=== PATIENT | female | born 1995 | race American Indian/Alaskan Native ===

== ENCOUNTER 2019-02-26 10:18 | Emergency (ER) | payer SELFPAY ==
[2019-02-26 10:27] VITALS: BP 99/61
--- NOTE | 2019-02-26 10:58 | Emergency Department Report ---
ED Syncope HPI - General Chief Complaint: Fall Stated Complaint: SYNCOPE Time Seen by Provider: 02/26/19 10:51 Source: patient Exam Limitations: no limitations - History of Present Illness Initial Comments: Sparkle is a very pleasant 24-year-old female with history of hypertension who presents after a syncopal episode at work. 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 She feels as if fainting occurs when she doesn't eat. She had previous fainting episode before. She has been taking atenolol for one year for the past year. She currently does not have a primary care physician. She has been prescribed this medication at the [facility]. She is in a program for marijuana use. She denies any chest pain. She denies shortness of breath. She denies palpitations. She denies leg pain. She denies travel. She does not use oral contraceptives. She is in her normal state of health currently. Timing/Prior Episodes: single episode today, remote history Precipitating Factors: Positive: none Context: standing Loss of Consciousness: brief (seconds) Current Symptoms: back to normal - Related Data Allergies/Adverse Reactions: Allergies No Known Allergies Allergy (Unverified 02/26/19 10:19) ED Review of Systems ROS: Stated complaint: SYNCOPE Other details as noted in HPI Comment: All other systems reviewed and negative Constitutional: denies: fever, malaise Respiratory: denies: cough, shortness of breath Cardiovascular: syncope. denies: chest pain, palpitations Gastrointestinal: denies: abdominal pain, nausea, vomiting ED Past Medical Hx - Past Medical History Previous Medical History?: Yes Hx Hypertension: Yes - Surgical History Past Surgical History?: No - Social History Smoking Status: Never Smoker Substance Use Type: None ED Physical Exam - General Limitations: No Limitations General appearance: alert, in no apparent distress - Head Head exam: Present: atraumatic, normocephalic - Eye Eye exam: Present: normal appearance. Absent: scleral icterus, conjunctival injection - ENT ENT exam: Present: mucous membranes moist - Neck Neck exam: Present: normal inspection, full ROM - Respiratory Respiratory exam: Present: normal lung sounds bilaterally. Absent: respiratory distress, wheezes, rales, rhonchi - Cardiovascular Cardiovascular Exam: Present: regular rate, normal rhythm, normal heart sounds. Absent: systolic murmur, diastolic murmur, rubs, gallop - GI/Abdominal GI/Abdominal exam: Present: soft, normal bowel sounds. Absent: distended, tenderness, guarding, rebound - Extremities Exam Extremities exam: Present: normal inspection - Neurological Exam Neurological exam: Present: alert, oriented X3 - Psychiatric Psychiatric exam: Present: normal affect, normal mood - Skin Skin exam: Present: warm, dry, intact, normal color. Absent: rash ED Course Vital Signs 02/26/19 10:24 Temperature 97.6 F Pulse Rate 97 H Respiratory 16 Rate Blood Pressure 99/61 [Left] O2 Sat by Pulse 96 Oximetry ED Medical Decision Making - Medical Decision Making Sparkle is a healthy 24-year-old female with history of hypertension on atenolol presents with syncopal episode. I suspect vasovagal syncope versus iatrogenic syncope to hypotension with atenolol use. Blood pressure is 99/61 at this time. She is currently symptom-free. I have asked Sparlke to stop taking atenolol until she is evaluated by an [facility] medical clinic physician. I provided her several referrals for primary care. She does not require any further intervention or evaluation. I do not suspect pulmonary embolism. She has perc negative for PE. I do not suspect arrhythmia or hemorrhage. Critical care attestation.: If time is entered above; I have spent that time in minutes in the direct care of this critically ill patient, excluding procedure time. ED Disposition Clinical Impression: Syncope Disposition: DC-01 TO HOME OR SELFCARE Is pt being admited?: No Does the pt Need Aspirin: No Condition: Stable Instructions: Syncope (ED) Additional Instructions: Please stop taking the atenolol until you're seen by a primary care physician. Referrals: SKY FRANCIS MD [Staff Physician] - 3-5 Days [facility] [Outside] - 3-5 Days Forms: Work/School Release Form(ED)
== END 2019-02-26 11:16 | disposition home or self-care (01) ==
LOC: ED 10:18
DX: R55 Syncope and collapse (principal); I10 Essential (primary) hypertension